=== PATIENT | male | born 1990 | race Hispanic/Latino ===

== ENCOUNTER 2017-10-14 15:56 | Emergency (ER) | payer BC ==
[2017-10-14 16:18] VITALS: BP 156/87; TEMP 98.9; O2SAT 99
[2017-10-14] MEDS ORDERED: LIDOCAINE 1% 10 ML VIAL INJ ONE (16:21)
[2017-10-14] MEDS ORDERED: TETANUS,DIPHTHERIA,PERTUSSIS 1 EA SYG IM ONE (16:22)
[2017-10-14] MEDS ORDERED: CHLORHEXIDINE GLUCONATE 4 % 15 ML UD TOP ONE (16:22)
--- NOTE | 2017-10-14 16:26 | ED.PDOC ---
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 Timing/Duration: 1 hour Improving Factors: nothing Worsening Factors: nothing Associated Symptoms: denies symptoms Allergies/Adverse Reactions: Allergies NO KNOWN ALLERGY Allergy (Verified 10/14/17 16:17) Home Medications: Ambulatory Orders Sulfa/Trimeth 800/160 (Ds) Tab [Bactrim DS Tab] 1 ea PO Q12HR #20 tab 10/14/17 Review of Systems - Review of Systems Constitutional: States: no symptoms reported EENTM: States: no symptoms reported Respiratory: States: no symptoms reported Cardiology: States: no symptoms reported Gastrointestinal/Abdominal: States: no symptoms reported Genitourinary: States: no symptoms reported Musculoskeletal: States: see HPI Skin: States: no symptoms reported Neurological: States: no symptoms reported Endocrine: States: no symptoms reported Hematologic/Lymphatic: States: no symptoms reported Past Medical History (General) - Patient Medical History Hx Congestive Heart Failure: No Hx Diabetes: No Surgical History: no surgical history - Vaccination History Hx Tetanus, Diphtheria Vaccination: - unknown Hx Influenza Vaccination: No - Social History Hx Tobacco Use: No Family Medical History - Family History Father Family History: Unknown Living Status: Unknown Physical Exam - Physical Exam General Appearance: Alert, Comfortable, Well Developed, Well Groomed, Well Hydrated, Well Nourished Ears, Nose, Throat: hearing grossly normal, normal ENT inspection, normal pharynx Neck: non-tender, full range of motion, supple, normal inspection Respiratory: chest non-tender, lungs clear, normal breath sounds, no respiratory distress Cardiovascular/Chest: normal peripheral pulses, regular rate, rhythm, no edema, no gallop, no JVD, no murmur Gastrointestinal/Abdominal: normal bowel sounds, non tender, soft, no organomegaly, no pulsatile mass Extremity: normal range of motion - DEEP LACERATION MID RIGHT ANTERIOR LEG 8 CM LONG INVOLVES SKIN SUB CUT FAT AND DEEP FACIA NO TENDON MUSCLE TRAUMA NO FB Procedures - Incision and Drainage #1 Site: REPAIR 8 CM LACERATION RIGHT MID ANTERIOR LEG Procedure and Prep: irrigated Procedure Comments: LA 1 % LIDOCAINE. SUTURE 3 0 PROLENE. REPAIR DONE WITH SINGLE LAYER SIMPLE INTERUPTED SUTURES WITHOUT COMPLICATIONS. REMOVAL OF SUTURES ON DAY 8 Departure - Departure Clinical Impression: Laceration Disposition: Discharge to Home or Self Care Condition: Good Departure Forms: ED Discharge - Pt. Copy, Patient Portal Self Enrollment Instructions: DI for Laceration Repair, DI for Laceration Repair -- Simple Activity: increase activity as tolerated Prescriptions: Sulfa/Trimeth 800/160 (Ds) Tab [Bactrim DS Tab] 1 ea PO Q12HR #20 tab Home Medications: Ambulatory Orders Sulfa/Trimeth 800/160 (Ds) Tab [Bactrim DS Tab] 1 ea PO Q12HR #20 tab 10/14/17 Print Language: Mongolian
[2017-10-14] MEDS ORDERED: NEOMYCIN-BACITRACIN-POLYMYXIN 0.9 GM UD TOP ONE (16:43)
== END 2017-10-14 17:00 | disposition home or self-care (01) ==
LOC: ER 15:56
DX: S81.811A Laceration without foreign body, right lower leg, initial encounter (principal); Z23 Encounter for immunization; W29.8XXA Contact with other powered hand tools and household machinery, initial encounter; Y92.9 Unspecified place or not applicable